=== PATIENT | female | born 1990 | race Caucasian/White ===

== ENCOUNTER 2017-05-03 17:47 | Emergency (ER) | payer SELFPAY ==
[~2017-05-03] VITALS: Ht 170.2 cm; Wt 129.0 kg
[2017-05-03 17:49] VITALS: TEMP 37.1; Ht 170.2 cm; Wt 129.0 kg
[2017-05-03] MEDS ORDERED: SODIUM CHLORIDE 0.9% 1000ML 1,000 ML IV STA ×2 (18:12)
[2017-05-03] MEDS ORDERED: FENTANYL CITRATE INJ 50 MCG/1 ML 2 ML VIAL IV STA (18:12)
[2017-05-03] MEDS ORDERED: ONDANSETRON INJ 2 MG/ML 2 ML VIAL IV STA (18:12)
[2017-05-03 18:48] LABS: BASO % 0.4 %; BASO ABS # 0.02 K/uL (0-0.2); EOS % 2.1 %; HEMATOCRIT 42.7 % (37-47); HEMOGLOBIN 15.4 g/dL (12.0-16.0); IG# 0.02 K/uL (0.00-0.02); LYMPH % 23.1 %; LYMPH ABS # 1.08 K/uL (1.2-3.4); MEAN CELL VOLUME 85.7 fL (80-100); MEAN CORPUSCULAR HEMOGLOBIN 30.9 pg (25-34); MEAN CORPUSCULAR HGB CONC 36.1 g/dl (32-36); MEAN PLATELET VOLUME 9.4 fL (7.4-10.4); MONO % 10.3 %; MONO ABS # 0.48 K/uL (0.11-0.59); NEUT % 63.7 %; NEUT ABS # 2.97 K/uL (1.4-6.5); PLATELET COUNT 174 K/uL (130-400); RED CELL DISTRIBUTION WIDTH CV 12.6 % (11.5-14.5); RED CELL DISTRIBUTION WIDTH SD 39.4 fL (36.4-46.3); WHITE BLOOD COUNT 4.67 K/uL (4.8-10.8)
[2017-05-03 19:01] LABS: PTT PATIENT 27.5 SECONDS (21.0-31.0)
[2017-05-03 19:09] LABS: ALBUMIN 3.8 gm/dl (3.4-5.0); CALCIUM 8.9 mg/dl (8.5-10.1); CREATININE 0.83 mg/dl (0.60-1.20); POTASSIUM 3.7 mmol/L (3.5-5.1)
[2017-05-03 19:19] LABS: TOTAL PROTEIN 7.6 gm/dl (6.4-8.2)
[2017-05-03] MEDS ORDERED: KETOROLAC TROMETHAMINE 30 MG/ML VIAL IV STA (19:24)
--- NOTE | 2017-05-03 20:11 | DIAGNOSTIC IMAGING REPORT ---
EXAMINATION: PELVIC ULTRASOUND CLINICAL HISTORY: PELVIC PAIN COMPARISON STUDY: None FINDINGS: The uterus measured 6.9 x 3.3 x 3.8 cm. The endometrial stripe measured 2 mm. The right ovary was nonvisualized. The left ovary measured 31 x 28 x 15 mm. There was no evidence of pathologic free pelvic fluid. The patient refused endovaginal scanning IMPRESSION: 1. Technically limited transabdominal study 2. Nonvisualization right ovary. 3. The left ovary appeared normal as visualized 4. No uterine abnormalities identified. Electronically signed by: Chris Sheets M.D. 05/03/2017 8:10 PM Dictated Date/Time: 05/03/2017 8:08 PM
--- NOTE | 2017-05-03 21:24 | DIAGNOSTIC IMAGING REPORT ---
EXAMINATION: PELVIC ULTRASOUND (endovaginal study) CLINICAL HISTORY: Pelvic Pain COMPARISON STUDY: Earlier today FINDINGS: The uterus measured 7.1 x 4.0 x 5.3 cm. The endometrial stripe measured 12 mm and mildly heterogeneous. The right ovary was not visualized. The left ovary measured 31 x 18 x 21 mm. There is trace free fluid likely physiologic. IMPRESSION: 1. Slightly heterogeneous endometrial stripe measuring 12 mm 2. No uterine masses 3. Sonographically normal left ovary 4. Nonvisualization of the right ovary Electronically signed by: Chris Sheets M.D. 05/03/2017 9:23 PM Dictated Date/Time: 05/03/2017 9:21 PM
[2017-05-03 22:08] VITALS: BP 132/76; PULSE 62; O2SAT 96
--- NOTE | 2017-05-03 22:17 | EMERGENCY ROOM VISIT NOTE ---
ED Visit Note First contact with patient: 17:53 , CHIEF COMPLAINT: Pelvic pain, vaginal bleeding 2 days HISTORY OF PRESENT ILLNESS: Patient is a 26-year-old [employer] female who presents the emergency department accompanied by her and [id number] for evaluation of pelvic pain and vaginal bleeding. Patient reports that her last menstrual period was 03/29/2017. She had a positive home test 2 days ago. She states that later that day she developed some brownish vaginal discharge, bleeding became heavier and bright red yesterday. Early in the day she states she was changing her pad every hour or so, but it tapered off throughout the day. Bleeding again picked up today. She reports pain across her entire lower abdomen, with associated back pain, headache, dizziness and nausea. She put a hot water bottle on her abdomen. She did not take any medication for pain. She rates her discomfort a 10/10 presently. She reports that she is otherwise healthy without any chronic medical problems, and no surgeries. She does not see a physician regularly. She is not taking any medications. She denies any urinary symptoms. She reports that her bowel movements have been a little sluggish over the last couple of days. No diarrhea. She has not vomited. She has not been evaluated for her yet. REVIEW OF SYSTEMS: Review of systems as per HPI. All other systems reviewed were negative. 10 systems reviewed. PMH: The patient is otherwise healthy without chronic medical problems or surgeries. SOCIAL HISTORY: Patient lives at home with her family. PHYSICAL EXAM: Vital Signs: Reviewed Nurse's notes. CONSTITUTIONAL: Patient is an obese 26-year-old white female who is awake and alert and in no acute distress. Vital signs are stable. Her and mother -in-law are at the bedside. EYES: Pupils equal, round, reactive to light and accommodation. EOMs intact without nystagmus. Sclera are anicteric. ENT: Tympanic membranes intact, with normal landmarks. External canals are clear. Oral and nasopharynx are clear. Mucous membranes are moist, no lesions , tongue and gums appear normal. NECK: Supple without lymphadenopathy. No thyromegaly. No meningeal signs. Full active range of motion without discomfort. CARDIOVASCULAR: Regular rate and rhythm, with normal S1 and S2, no murmur or gallop or rub is heard. No carotid bruits auscultated. No JVD. Peripheral pulses easily palpable. RESPIRATORY: Breath sounds equal and clear to auscultation without wheezes, rales, or rhonchi heard. Full and equal chest expansion without accessory muscle use or retractions. ABDOMEN: Bowel sounds are present. Abdomen is soft obese, nontender to percussion throughout. She has some very mild suprapubic discomfort. There is no guarding, rebound or rigidity. There is no pain in the right upper quadrant. There is no pain in the right lower quadrant over McBurney's point. Pelvic Exam: Genitalia are normal Vagina is clean, scant blood noted in the vaginal vault. Cervix is healthy appearing, closed, no lesions noted. No cervical motion tenderness. No active bleeding through the cervical os. The uterus is small, nontender The adnexa no masses, nontender INTEGUMENTARY: No lesions or rash, normal skin turgor. LYMPH: No lymphadenopathy. EMERGENCY DEPARTMENT COURSE: The patient was seen and evaluated as above. She presents the emergency department with pelvic pain and vaginal bleeding in the setting of a positive home test. IV lock was initiated and laboratory studies were collected. She was hydrated with normal saline solution. She was medicated initially with fentanyl 50 mcg and Zofran 4 mg IV. Laboratory studies were collected including CBC with differential coags, CMP, TSH, urinalysis and type and screen. Laboratory studies noted a normal white count at 4600, H&H is normal at 15.4 and 42.7, platelet count is normal. Coags are unremarkable. Electrolytes, renal functions and liver functions are all within normal limits. TSH is indicative of a euthyroid state. Her quantitative hCG is less than 1. Urinalysis is indicative of contamination, with greater than 30 epithelial cells and greater than 30 RBCs. She does have some white blood cells and leuk esterase, but no nitrates and no bacteria. I discussed with the patient and her family her laboratory studies. With a quant less than 1, it is unlikely that she is . The patient at this point was medicated with Toradol 30 mg IV. Discussed with them the possibility of a false positive test or a very early miscarriage. Given the pelvic pain, we did proceed with a pelvic ultrasound which did not show any acute abnormality. Pelvic exam was performed as above. Cultures are obtained and are pending. All laboratory and diagnostic imaging studies were reviewed with the patient and her family. Differential diagnoses entertained included irregular menses, dysmenorrhea, , ectopic , miscarriage, ovarian cyst, ovarian torsion, UTI, cystitis, coagulopathy, among others. The patient reported improvement in her symptoms. Bleeding had almost completely stopped at the time of discharge. She is otherwise well-appearing and hemodynamically stable. There is no evidence for anemia or dehydration. Family question whether stress or anxiety could also play a role in her symptoms , and this was discussed. She was encouraged to follow-up with her primary care provider for further care and management, particularly if her symptoms persist. Patient was discharged home with family in good condition. Medication reconciliation: I attest that I have personally reviewed the patient' s current medication list. Blood pressure screening : Patient was found to have normal blood pressure on screening and does not require follow-up. EXAMINATION: PELVIC ULTRASOUND CLINICAL HISTORY: PELVIC PAIN COMPARISON STUDY: None FINDINGS: The uterus measured 6.9 x 3.3 x 3.8 cm. The endometrial stripe measured 2 mm. The right ovary was nonvisualized. The left ovary measured 31 x 28 x 15 mm. There was no evidence of pathologic free pelvic fluid. The patient refused endovaginal scanning IMPRESSION: 1. Technically limited transabdominal study 2. Nonvisualization right ovary. 3. The left ovary appeared normal as visualized 4. No uterine abnormalities identified. EXAMINATION: PELVIC ULTRASOUND (endovaginal study) CLINICAL HISTORY: Pelvic Pain COMPARISON STUDY: Earlier today FINDINGS: The uterus measured 7.1 x 4.0 x 5.3 cm. The endometrial stripe measured 12 mm and mildly heterogeneous. The right ovary was not visualized. The left ovary measured 31 x 18 x 21 mm. There is trace free fluid likely physiologic. IMPRESSION: 1. Slightly heterogeneous endometrial stripe measuring 12 mm 2. No uterine masses 3. Sonographically normal left ovary 4. Nonvisualization of the right ovary Current/Historical Medications No Active Prescriptions or Reported Meds Allergies Coded Allergies: Amoxicillin (Verified Allergy, Mild, HIVES, SWELLING, 05/03/17) Vital Signs Date Time Temp Pulse Resp B/P (MAP) Pulse Ox O2 Delivery O2 Flow Rate FiO2 05/03/17 22:08 62 16 132/76 96 Room Air 05/03/17 20:09 75 16 139/98 96 Room Air 05/03/17 17:49 37.1 88 18 134/84 97 Room Air Laboratory Results 05/03/17 18:26 Red Blood Count 4.98, Mean Corpuscular Volume 85.7, Mean Corpuscular Hemoglobin 30.9, Mean Corpuscular Hemoglobin Concent 36.1, Mean Platelet Volume 9.4, Neutrophils (%) (Auto) 63.7, Lymphocytes (%) (Auto) 23.1, Monocytes (%) (Auto) 10.3, Eosinophils (%) (Auto) 2.1, Basophils (%) (Auto) 0.4, Neutrophils # (Auto ) 2.97, Lymphocytes # (Auto) 1.08, Monocytes # (Auto) 0.48, Eosinophils # (Auto ) 0.10, Basophils # (Auto) 0.02 05/03/17 18:26 Test 05/03/17 18:26 05/03/17 19:06 05/03/17 22:00 White Blood Count 4.67 K/uL (4.8-10.8) Red Blood Count 4.98 M/uL (4.2-5.4) Hemoglobin 15.4 g/dL (12.0-16.0) Hematocrit 42.7 % (37-47) Mean Corpuscular Volume 85.7 fL (80-100) Mean Corpuscular Hemoglobin 30.9 pg (25-34) Mean Corpuscular Hemoglobin Concent 36.1 g/dl (32-36) Platelet Count 174 K/uL (130-400) Mean Platelet Volume 9.4 fL (7.4-10.4) Neutrophils (%) (Auto) 63.7 % Lymphocytes (%) (Auto) 23.1 % Monocytes (%) (Auto) 10.3 % Eosinophils (%) (Auto) 2.1 % Basophils (%) (Auto) 0.4 % Neutrophils # (Auto) 2.97 K/uL (1.4-6.5) Lymphocytes # (Auto) 1.08 K/uL (1.2-3.4) Monocytes # (Auto) 0.48 K/uL (0.11-0.59) Eosinophils # (Auto) 0.10 K/uL (0-0.5) Basophils # (Auto) 0.02 K/uL (0-0.2) RDW Standard Deviation 39.4 fL (36.4-46.3) RDW Coefficient of Variation 12.6 % (11.5-14.5) Immature Granulocyte % (Auto) 0.4 % Immature Granulocyte # (Auto) 0.02 K/uL (0.00-0.02) Prothrombin Time 10.0 SECONDS (9.0-12.0) Prothromb Time International Ratio 1.0 (0.9-1.1) Activated Partial Thromboplast Time 27.5 SECONDS (21.0-31.0) Partial Thromboplastin Ratio 1.1 Anion Gap 6.0 mmol/L (3-11) Est Creatinine Clear Calc Drug Dose 144.9 ml/min Estimated GFR () 113.6 Estimated GFR (Non- 98.0 BUN/Creatinine Ratio 12.8 (10-20) Calcium Level 8.9 mg/dl (8.5-10.1) Total Bilirubin 0.7 mg/dl (0.2-1) Aspartate Amino Transf (AST/SGOT) 28 U/L (15-37) Alanine Aminotransferase (ALT/SGPT) 52 U/L (12-78) Alkaline Phosphatase 77 U/L (45-117) Total Protein 7.6 gm/dl (6.4-8.2) Albumin 3.8 gm/dl (3.4-5.0) Globulin 3.8 gm/dl (2.5-4.0) Albumin/Globulin Ratio 1.0 (0.9-2) Thyroid Stimulating Hormone (TSH) 2.480 uIu/ml (0.300-4.500) Human Chorionic Gonadotropin, Quant < 1 mIU/mL Urine Color ORANGE Urine Appearance CLOUDY (CLEAR) Urine pH 5.5 (4.5-7.5) Urine Specific [place] 1.019 (1.000-1.030) Urine Protein TRACE (NEG) Urine Glucose (UA) NEG (NEG) Urine Ketones NEG (NEG) Urine Occult Blood 3+ (NEG) Urine Nitrite NEG (NEG) Urine Bilirubin NEG (NEG) Urine Urobilinogen NEG (NEG) Urine Leukocyte Esterase SMALL (NEG) Urine WBC (Auto) 10-30 /hpf (0-5) Urine RBC (Auto) >30 /hpf (0-4) Urine Hyaline Casts (Auto) 1-5 /lpf (0-5) Urine Epithelial Cells (Auto) >30 /lpf (0-5) Urine Bacteria (Auto) NEG (NEG) Medications Administered Medications (Trade) Dose Ordered Sig/Ailyn Route Start Time Stop Time Status Last Admin Dose Admin Sodium Chloride 1,000 ml @ 999 mls/hr Q1H1M STAT IV 05/03/17 18:12 05/03/17 19:12 DC 05/03/17 18:28 999 MLS/HR Sodium Chloride 1,000 ml @ 250 mls/hr Q4H STAT IV 05/03/17 18:12 05/03/17 22:11 DC 05/03/17 18:12 250 MLS/HR Ondansetron HCl (Zofran Inj) 4 mg NOW STAT IV 05/03/17 18:12 05/03/17 18:14 DC 05/03/17 18:27 4 MG Fentanyl Citrate (Fentanyl Inj) 50 mcg NOW STAT IV 05/03/17 18:12 05/03/17 18:14 DC 05/03/17 18:28 50 MCG Ketorolac Tromethamine (Toradol Inj) 30 mg NOW STAT IV 05/03/17 19:24 05/03/17 19:25 DC 05/03/17 19:24 30 MG Departure Information Impression Primary Impression: Pelvic pain Additional Impression: Vaginal bleeding Prescriptions No Active Prescriptions or Reported Meds Referrals No Doctor, Assigned (PCP) Patient Instructions [facility] Additional Instructions Ibuprofen(Motrin, Advil) may be used for fever or pain. Use 600mg every six hours as needed. Take with food. Avoid using more than 2400mg in a 24 hour period. Do not use 2400mg per day for more than three consecutive days without physician direction. Prolonged inappropriate use can lead to stomach upset or ulcers. (AND/OR) Acetaminophen(Tylenol) may be used for fever or pain. Use 1000mg every six hours as needed. Avoid using more than 3000mg in a 24 hour period. Rest and drink plenty of fluids. Diet as tolerated. Return to the ED for worsening pain, heavier bleeding (soaking a pad in an hour or less, passing clots larger than your fist), passing out, worsening of her condition or as needed. Follow-up with your primary care physician/AP OPERATOR for recheck next week. Problem Qualifiers
== END 2017-05-03 22:35 | disposition home or self-care (01) ==
LOC: C.EDB 17:49 → C.EDA 22:35
DX: R10.2 Pelvic and perineal pain (principal); N93.9 Abnormal uterine and vaginal bleeding, unspecified; E66.3 Overweight